=== PATIENT | male | born 2000 | race Caucasian/White ===

== ENCOUNTER 2025-03-22 09:34 | Day surgery (SDC) | payer OTHER, SELFPAY ==
[2025-03-22] VITALS (8 sets, daily range): BP systolic 99–137; BP diastolic 60–88; PULSE 67–84; RESP 16–18; TEMP 36.2–37; O2SAT 92–100; BMI 23.2; BMI 23.1
--- NOTE | 2025-03-22 10:10 | CRLHL7_ITS ---
For Patients: As a result of the Cures Act, medical imaging exams and procedure reports are released immediately into your electronic medical record. You may view this report before your referring provider. If you have questions, please contact your health care provider. INDICATION: Crush injury to hand with laceration on the medial fingers COMPARISON: None. TECHNIQUE: Three views right hand. FINDINGS: No acute or healing fracture. Normal joint alignment. Joint spaces are normal. No focal bone lesions. Normal bone mineralization. Soft tissue swelling and soft tissue wound/laceration in the 3rd 4th and 5th fingers. There are 3 punctate hyperdensities along the ulnar margin of the 5th finger proximal phalanx that could be embedded foreign bodies versus external to the patient. There is some bandage artifact. IMPRESSION: 1. Right 3rd through 5th finger soft tissue injury/laceration. Possible tiny imbedded foreign bodies the 5th finger as detailed above. 2. No right hand fracture or dislocation. Dictated by Nini Godinez MD @ 03/22/2025 10:51:35 AM (Electronically Signed)
--- NOTE | 2025-03-22 10:40 | ED.WOUNDLAC ---
HPI - Wound/Laceration General Time Seen by Provider: 10:50 Date Seen: 03/22/25 Chief Complaint: Laceration/Wound Stated Complaint: R hand lac Time Seen by Provider: 03/22/25 10:25 Source: patient and RN notes reviewed Mode of arrival: ambulatory Limitations: no limitations History of Present Illness HPI narrative: This 24-year-old male was referred from urgent care with a crushing hand injury to his right hand from a hydraulic saw today. They noted several lacerations to his fingers, metal imbedded in his wounds. They referred him to us. He had a Tdap on 11/13/2024. What happened with this injury is the patient was moving metal and cutting metal, his hand got caught on the stop bar and the fingers actually bent backward. The lacerations happened within the injury, they did not come in contact with the saw. He was cutting a metal, specifically aluminum. Denies any numbness tingling. This is patient's dominant hand, he is right handed. On further questioning, patient initially denied any medicines but he is on a steroid, he states he usually takes it on the weekend. He has had surgery on a broken leg when he was a kid, did have a muscle biopsy before. He is reported to have myositis, follows at [facility] in [place] for this. No acute illness at this time. He is not aware of any family anesthesia complications, he has had no problems with anesthesia before. In the [facility] record, can see he carries a diagnosis of dermatomyositis and follows with rheumatology. He appears to be on folic acid and methotrexate, not a steroid. Cefprozil is listed as an allergy in his outside chart, patient was unsure if he had an allergy or not. Patient takes 2 mg of folic acid daily and 25 mg of methotrexate weekly. Related Data Home Medications ?Medication ?Instructions ?Recorded ?Confirmed No Known Home Medications 03/22/25 03/22/25 Allergies Allergy/AdvReac Type Severity Reaction Status Date / Time cefprozil Allergy Unknown Verified 03/22/25 13:02 Review of Systems Narrative: As per HPI. PFS PFS Social History Smoking Status: Never smoker Do you use any of these nicotine containing products: None Second hand tobacco smoke exposure: No How often do you have a drink containing alcohol: monthly or less How many standard drinks containing alcohol do you have on a typical day: 1 or 2 How often do you have six or more drinks on one occasion: Never AUDIT-C Alcohol total score: 1 Non-prescribed substance use: denies use Exam Const: Vital Signs, click to edit/add: Vital Signs - 24 hr 03/22/25 10:03 03/22/25 11:55 03/22/25 12:00 Temperature 98.6 F Pulse Rate 82 71 Pulse Rate [Pulse Oximeter] 79 Respiratory Rate 18 18 18 Blood Pressure 137/88 119/65 Blood Pressure [Le ft Upper Arm] 101/64 Pulse Oximetry 100 100 100 Oxygen Delivery Me thod Room Air Nasal Cannula Nasal Cannula Oxygen Flow Rate 3 3 This 24-year-old male his alert, interactive, no apparent distress, seen in exam room 4. He has bandaging over his hand, he has normal light touch sensation throughout the fingers. I am able to get him to flex 3rd to 5th fingers, there is some difficulty at the right but there is a large proximal lateral laceration. He has some smaller lacerations both on the dorsal and volar surface of the 4th finger, laceration on the 3rd finger. There are multiple extensive aluminum metallic fragments visualized. No pain with in the hand or wrist,. No active extravasation of blood from his wounds at this time. Difficult to see the extent and depth of the wound of the 2nd and 3rd fingers due to swelling, overlying blood/drying. He has no other focal traumatic changes. Sclera clear, conjugate gaze, speech normal. Lungs are clear, good air entry, no wheezing or crackles, no tachypnea, no accessory muscle use. CV regular rate and rhythm, no murmur, normal S1-S2, no S3-S4. Abdomen is soft, nontender, nondistended, no organomegaly noted. Patient did ambulate into the ED of his own accord. Documenting provider has reviewed patient's vital signs: yes Course Course ED Course: Patient had imaging ordered on arrival which I asked nursing to do, do not see any fractures. He has multiple lacerations over the fingers in his hand minus the thumb. The index laceration does look extensive and deep but cannot see further. Nursing staff had noted they could see bone on the 3rd finger, I am not necessarily noting this at this time. He has sensation throughout all fingers. I see metallic fragments all over the hand, do have to think that these certainly could be within the wounds. Will talk to Orthopedics on this patient as I think this would be better suited surgically. Reevaluation(s) Time of Reevaluation #1: 11:40 Reevaluation #1: Decision has been made to take the patient to the OR for washout. I have updated his past medical history. He should be clear for a trial of anesthesia for this semi emergent exploration, washout and closure. Orthopedics will be doing this, Dr. Gruber is the orthopedic surgeon and is consenting the patient. Consultations Consultation #1: This patient has been evaluated by Orthopedics. I feel that this patient would be best suited going to the OR for washout, I am not sure how we will achieve adequate anesthesia with multiple lacerations over multiple fingers with the potential for aluminum within the tissues. He has aluminum fragments all over his external hand, can see some abutting the wounds. His 2nd finger seems to have intact function but is a deep wound and there is overlying blood and drying now at this time. Patient did have a juice box at urgent care. I do think going to the OR for a washout and closure with exploration is still what is appropriate for this patient. They could do regional anesthesia in the OR, I cannot provide this here. Outside of the juice box, last ate last night. Patient did get diaphoretic and pale with examination of his hand, got him an ice pack for his neck and reclined him, this helped with these symptoms. Time: 11:21 Vital Signs Vital signs: Initial Vital Signs Temperature 98.6 F 03/22/25 10:03 Temperature Source Temporal Artery Scan 03/22/25 10:03 Pulse Rate 79 03/22/25 10:03 Respiratory Rate 18 03/22/25 10:03 Blood Pressure 101/64 03/22/25 10:03 Blood Pressure Mean 76 03/22/25 10:03 Pulse Oximetry 100 03/22/25 10:03 Oxygen Delivery Method Room Air 03/22/25 10:03 Vital Signs Temperature 98.6 F 03/22/25 10:03 Pulse Rate 79 03/22/25 10:03 Respiratory Rate 18 03/22/25 10:03 Blood Pressure 101/64 03/22/25 10:03 Pulse Oximetry 100 03/22/25 10:03 Oxygen Delivery Method Room Air 03/22/25 10:03 Temperature 98.6 F 03/22/25 10:03 Pulse Rate 71 03/22/25 12:00 Respiratory Rate 18 03/22/25 12:00 Blood Pressure 119/65 03/22/25 12:00 Pulse Oximetry 100 03/22/25 12:00 Oxygen Delivery Method Nasal Cannula 03/22/25 12:00 Oxygen Flow Rate 3 03/22/25 12:00 Medications Administered Medications: Generic Name Dose Route Start Last Admin Trade Name Freq PRN Reason Stop Dose Admin Lactated Ringer's 1,000 mls @ 100 mls/hr 03/22/25 11:30 03/22/25 11:55 Lactated Ringers 1000 Ml IV 100 mls/hr .Q10H MEERA Administration Sodium Chloride 10 ml 03/22/25 11:26 03/22/25 11:55 Sodium Chloride 0.9 % (Flush) 10 Ml Syringe IVF 10 ml .FLUSH PRN Administration Discontinued Medications Generic Name Dose Route Start Last Admin Trade Name Freq PRN Reason Stop Dose Admin Fentanyl 50 - 100 mcg 03/22/25 11:26 03/22/25 11:55 Fentanyl 100 Mcg/2 Ml Inj IVP 03/22/25 11:27 100 mcg ONCE ONE Administration Clindamycin Phosphate 900 mg in 50 mls @ 100 mls/hr 03/22/25 11:55 03/22/25 12:25 Clindamycin 900 Mg/50 Ml-D5w IVPB 03/22/25 12:24 100 mls/hr ONCE ONE Administration Midazolam HCl 1 - 2 mg 03/22/25 11:26 03/22/25 11:55 Midazolam Hcl 1 Mg/Ml Inj IVP 03/22/25 11:27 2 mg ONCE ONE Administration MDM - Wound/Laceration Imaging Data XR right hand: Attestation: I have reviewed the pertinent imaging results. Radiologist's impression: Patient: KAMAR COLLINS Facility:?[facility] Patient ID:?[id number] Site Patient ID:?[id number]. Site :?[id number] Study:?XRay-Extremity Right HAND 3 VIEWS-03/22/2025 10:43:15 AM Ordering Physician:Angel Glover Final Report: INDICATION: Crush injury to hand with laceration on the medial fingers COMPARISON: None. TECHNIQUE: Three views right hand. FINDINGS: No acute or healing fracture. Normal joint alignment. Joint spaces are normal. No focal bone lesions. Normal bone mineralization. Soft tissue swelling and soft tissue wound/laceration in the 3rd 4th and 5th fingers. There are 3 punctate hyperdensities along the ulnar margin of the 5th finger proximal phalanx that could be embedded foreign bodies versus external to the patient. There is some bandage artifact. IMPRESSION: 1. Right 3rd through 5th finger soft tissue injury/laceration. Possible tiny imbedded foreign bodies the 5th finger as detailed above. 2. No right hand fracture or dislocation. Dictated by Nini Godinez MD @ 03/22/2025 10:51:35 AM (Electronic Signature) Discharge Plan Discharge Clinical Impression: Foreign body (FB) in soft tissue Crush injury of hand Qualifiers: Encounter type: initial encounter Laterality: right Qualified Code(s): S67.21XA - Crushing injury of right hand, initial encounter Laceration of multiple sites of right hand and fingers Qualifiers: Encounter type: initial encounter Qualified Code(s): S61.411A - Laceration without foreign body of right hand, initial encounter Patient Disposition: XFER to OR Condition: Stable
--- NOTE | 2025-03-22 11:49 | P.ORCN_ITS ---
History of Present Illness HPI Time Seen by Provider: 11:00 Date Seen: 03/22/25 Requesting physician: Belen Becerra Chief complaint: R hand lac Narrative: Vitaly is a 24-year-old zkzcv-ebfj-kmaouwyn male presented to urgent care this morning and was subsequently referred to the emergency department after he sustained a crush injury to his right hand from a hydraulic saw. He states that he was cutting a lumen and when his hand got crushed by the stop. He noted several lacerations to his fingers and thinks there might be some metal embedded in some of the wounds. He currently complains of pain in his index, middle, ring, and small fingers and states that his finger motion is limited by pain. He denies any numbness or tingling in his fingers. He had a Tdap on 11/13/2024. He has past medical history significant for derm atitis for which he is on 2 mg of folic acid daily and methotrexate weekly. and methotrexate. He reports an allergy to Cefzil as a child but is unsure of the reaction. [facility] Social History Smoking Status: Never smoker Do you use any of these nicotine containing products: None Second hand tobacco smoke exposure: No How often do you have a drink containing alcohol: monthly or less How many standard drinks containing alcohol do you have on a typical day: 1 or 2 How often do you have six or more drinks on one occasion: Never AUDIT-C Alcohol total score: 1 Non-prescribed substance use: denies use Meds Home Medications and Allergies Home Medications ?Medication ?Instructions ?Recorded ?Confirmed ?Type No Known Home Medications 03/22/2503/09 History Allergies Allergy/AdvReac Type Severity Reaction Status Date / Time cefprozil Allergy Unknown Verified 03/22/25 13:02 Ortho Exam Narrative Exam Narrative: General: Patient is alert and oriented. Musculoskeletal: Right hand was examined. Multiple lacerations of his fingers: -Index finger: Complex, v-shaped, right index finger laceration on the volar radial aspect of the middle phalanx which measured 5 cm in length. -Middle finger: 2 cm laceration ulnar aspect of middle finger just the level of the PIP joint. -Ring finger: 1 cm dorsal ulnar laceration just distal to the PIP joint. FDP, FDS, and finger were intact, however, flexion and extension of the index, middle, and ring fingers was weak and limited by pain. Sensation was intact to light touch to the distal, radial, and ulnar aspects of the thumb, index, middle, ring, and ring fingers. All fingers were warm and well perfused with good capillary refill. Const Vital Signs, click to edit/add: Vital Signs - 24 hr 03/22/25 10:03 Temperature 98.6 F Pulse Rate [Pulse Oximeter] 79 Respiratory Rate 18 Blood Pressure [Left Upper Arm] 101/64 Pulse Oximetry 100 Oxygen Delivery Method Room Air Results Diagnostic results Additional Comments: AP, lateral, oblique x-rays of right hand performed 03/22/2025 were reviewed. These demonstrated soft tissue swelling of the index, middle, and ring fingers. Are some radiopaque densities the ulnar aspect of the small finger. No evidence of any fractures or dislocations. Assessment and Plan Assessment and plan (1) Foreign body (FB) in soft tissue: Status: Acute (2) Laceration of multiple sites of right hand and fingers: Status: Acute (3) Crush injury of hand: Status: Acute Plan Patient was examined in emergency department. He has lacerations to his index, middle, and ring fingers and contaminated wounds. His tendons and neurovascular structures all appear to be intact. Recommendation was made for surgical interv ention consisting of irrigation, debridement, and closure of the of the right hand lacerations. Risks and benefits of the procedure were discussed with the patient, all questions were answered, and informed consent was obtained. Will plan to take patient to OR as soon as OR is ready.
[2025-03-22] MEDS: SODIUM CHLORIDE 0.9 % (FLUSH) 10 ML SYRINGE IVF (11:55)
[2025-03-22] MEDS: MIDAZOLAM HCL 1 MG/ML inj IVP (11:55)
[2025-03-22] MEDS: LACTATED RINGERS 1000 ML 1,000 ML 100 ML IV (11:55)
--- NOTE | 2025-03-22 12:10 | SUR.PREOP ---
TIME?OUT:?1155 PT/randall ujnior RN/viet meeks MDA?VERIFICATION?OF?SURGICAL?SITE,?PROCEDURE,?AND?CONSENT OBTAINED?PRIOR?TO?INVASIVE?PROCEDURE.
--- NOTE | 2025-03-22 12:11 | P.NB_ITS ---
Nerve Block Nerve Block Time Seen by Provider: 12:00 Date Seen: 03/22/25 Type of block requested by surgeon for post-operative analgesia: axillary Side: right Time out performed: Yes Verification of patient name: Yes Verification of date of : Yes Site marking: site marked Name of person performing procedure: Chuck Continuous monitoring Was continuous monitoring of O2 sat, B/P, lunchroom monitor, recorded every 15 minutes?: Yes Procedure Checklist: sterile prep, needles and gloves Ultrasound guided. Images saved: Yes Medications given in 5ml increments after negative aspiration: Marcaine %: 0.25 mL: 10 Needle gauge: 22 and Lidocaine %: 2 mL: 20 Patient tolerated procedure well: Yes Additional comments: Needle noted adjacent to nerve Block Charges Block Charge (with Pro Fee): Brachial Plexus Use of Ultrasound Machine for Block: Yes- US Guidance/pain block
[2025-03-22] MEDS: CLINDAMYCIN 900 MG/50 ML-D5W 900 MG/50 ML PIGGYBACK 100 MG IVPB (12:25)
--- NOTE | 2025-03-22 12:45 | SUR.OPER ---
PATIENT QUESTIONS ANSWERED SATISFACTORILY PREOPERATIVELY. PATIENT BROUGHT TO OR #2 PER CART FOLLOWING THE BLOCK. Patient positioned supine on OR #2 bed Final approval of positioning by surgeon.
[2025-03-22] MEDS: BACITRACIN OINTMENT BULK TUBE 1 APPLIC TOPICAL (13:36)
--- NOTE | 2025-03-22 13:50 | PM.ORPRC ---
Documented by User: Dave Gruber MD 03/22/25 14:55 Procedure Note Date of procedure: 03/22/25 Procedure: PREOPERATIVE DIAGNOSIS: 1. Right index, middle, and ring finger lacerations POSTOPERATIVE DIAGNOSIS: 1. Right index, middle, and ring finger lacerations 2. Right middle finger extensor tendon (ulnar lateral band) laceration 3. Right ring finger extensor tendon (ulnar lateral band) laceration PROCEDURE: 1. Right index, middle, and ring finger irrigation, debridement, and wound closure 2. Right middle finger extensor tendon repair (ulnar lateral band) 3. Right ring finger extensor tendon repair (ulnar lateral band) SURGEON: Maxime Gruber MD. SUPERVISOR OF OFFICIALS: Sander Roblero - Of note, an research lab assistant was critical for this case to aid in patient positioning, tissue retraction, limb manipulation/positioning, wound closure, and splint application ANESTHESIA: Axillary nerve block with monitored anesthesia care TOURNIQUET: 36 minutes at 250 mmHg ESTIMATED BLOOD LOSS: 10 mL COMPLICATIONS: None INDICATIONS: The patient is a 24-year-old eshrx-yfjo-ozoyroaa male who sustained a crush injury to his right hand while at work earlier today. Injury resulted in lacerations to the index, middle, and ring fingers. Today should subside made for surgical intervention consisting of irrigation, debridement and wound closure. Prior to surgery the risks and benefits were discussed with patient, all questions were answered, and informed consent was obtained. FINDINGS: Index finger: Complex, v-shaped, right index finger laceration on the volar radial aspect of the middle phalanx which measured 5 cm in length. No involvement of tendons or neurovascular structures. Middle finger: 2 cm laceration ulnar aspect of middle finger just the level of the PIP joint with laceration of the lateral band. Ring finger: 1 cm dorsal ulnar laceration just distal to the PIP joint with laceration of the lateral band. DESCRIPTION OF PROCEDURE: Following a thorough discussion of risks, benefits, and alternatives to the procedure, informed consent was obtained. An axillary nerve block was then provided by anesthesia staff. Patient was then brought to the operating room placed in supine position the OR table. Patient was provided with 9 mg IV clindamycin preoperatively for prophylaxis and monitored anesthesia care was provided. A tourniquet was then placed on the patient's right forearm, and the right upper extremity was prepped and draped in usual sterile fashion. A surgical time-out was performed with findings as noted above. Right upper extremity was elevated exsanguinated with Esmarch, and tourniquet was inflated 250 mmHg. Lacerations on the index, middle, and ring fingers were irrigated with copious amounts of normal saline. Small pieces of foreign material that was encountered was removed. After the wounds had been thoroughly irrigated they were thoroughly explored with findings as noted above. The middle finger and ring finger ulnar lateral bands were noted to be lacerated. Each of these lateral bands were subsequently repaired with 4-0 FiberWire using a modified Rodriguez stitch. After repair, lateral bands were well approximated and stable. Tourniquet was then released. Hemostasis was achieved with bipolar electrocautery. Lacerations were then closed with 4-0 nylon simple interrupted sutures. Adaptic and bacitracin were applied to the wounds followed by application of sterile dressing and hand based volar splint with the fingers in the intrinsic plus position. Patient was then woken from anesthesia transferred to the recovery room in stable condition. PLAN: 1. Ice and elevation to help control swelling 2. Antibiotics: Clindamycin 300 mg 3 times daily for 3 days 3. Pain management: Tylenol or ibuprofen as needed for pain control. [place] as needed for more severe pain. 4. Will initiate occupational therapy 3-7 days postoperatively per the Hand Extensor Tendon Repair Protocol (zones II,III,IV) 5. Follow-up in Orthopedic Clinic 10-14 days postoperatively for wound check and suture removal.
--- NOTE | 2025-03-22 14:08 | P.ANES_ITS ---
Anesthesia Charges Start Date/Time Anesthesia Start Date: 03/22/25 Anesthesia Start Time: 12:14 Stop Date/Time Anesthesia Stop Date: 03/22/25 Anesthesia Stop Time: 14:01 Summary Emergency: ROBBIE Coding CPT Codes CPT Codes: ANESTH LOWER ARM SURGERY - 33603 ([id number]) P2 - PATIENT W/MILD SYST DISEASE, QK - VOCATIONAL TRAINING INSTRUCTOR 2-4 CNCRNT ANES PROC, QX - CITIZEN PARTICIPATION SPECIALIST SVC W/ MD MED DIRECTION Additional Codes: Summary - Emergency: ROBBIE ([id number])
--- NOTE | 2025-03-22 14:08 | W.ANESCHARGE ---
Anesthesia Charges Start Date/Time Anesthesia Start Date: 03/22/25 Anesthesia Start Time: 12:14 Stop Date/Time Anesthesia Stop Date: 03/22/25 Anesthesia Stop Time: 14:01 Summary Emergency: ROBBIE Coding CPT Codes CPT Codes: ANESTH LOWER ARM SURGERY - 90685 ([id number]) P2 - PATIENT W/MILD SYST DISEASE, QK - DELIVERY TECH 2-4 CNCRNT ANES PROC, QX - JAVA J2EE SOFTWARE ENGINEER SVC W/ MD MED DIRECTION Additional Codes: Summary - Emergency: ROBBIE ([id number])
--- NOTE | 2025-03-22 14:12 | P.ANES_ITS ---
Anesthesia Charges Start Date/Time Anesthesia Start Date: 03/22/25 Anesthesia Start Time: 12:14 Stop Date/Time Anesthesia Stop Date: 03/22/25 Anesthesia Stop Time: 14:01 Coding CPT Codes CPT Codes: ANESTH SKIN EXT/PER/ATRUNK - 60798 ([id number]) P2 - PATIENT W/MILD SYST DISEASE, QK - GIMP BUTTONHOLE MACHINE OPERATOR 2-4 CNCRNT ANES PROC, QX - BRISKET PULLER SVC W/ MD MED DIRECTION
--- NOTE | 2025-03-22 14:12 | W.ANESCHARGE ---
Anesthesia Charges Start Date/Time Anesthesia Start Date: 03/22/25 Anesthesia Start Time: 12:14 Stop Date/Time Anesthesia Stop Date: 03/22/25 Anesthesia Stop Time: 14:01 Coding CPT Codes CPT Codes: ANESTH SKIN EXT/PER/ATRUNK - 69862 ([id number]) P2 - PATIENT W/MILD SYST DISEASE, QK - RENEWALS MANAGER 2-4 CNCRNT ANES PROC, QX - DATAPOWER DEVELOPER SVC W/ MD MED DIRECTION
--- NOTE | 2025-03-22 14:52 | SUR.PHASEII ---
Patient ambulated to bathroom at 1410. Patient voided and got dressed. Patient tolerated water and yogurt.
--- NOTE | 2025-03-22 15:02 | SUR.PHASEII ---
Patient and mother verbalized understanding of discharge instructions and readiness to be discharged.
== END 2025-03-22 15:05 | disposition home or self-care (01) ==
LOC: ED 11:32 → SS 11:38
PROVIDERS: Emergency Provider Family Medicine; Visit Provider Orthopaedic Surgery
PROC: (CPT 26418; principal; 2025-03-22 11:45)
DX: S66.322A Laceration of extensor muscle, fascia and tendon of right middle finger at wrist and hand level, initial encounter (principal); S66.324A Laceration of extensor muscle, fascia and tendon of right ring finger at wrist and hand level, initial encounter; S67.21XA Crushing injury of right hand, initial encounter; S61.220A Laceration with foreign body of right index finger without damage to nail, initial encounter; S61.222A Laceration with foreign body of right middle finger without damage to nail, initial encounter; S61.224A Laceration with foreign body of right ring finger without damage to nail, initial encounter; W31.1XXA Contact with metalworking machines, initial encounter; Y93.H3 Activity, building and construction; Y92.63 Factory as the place of occurrence of the external cause; Y99.0 Civilian activity done for income or pay; G89.18 Other acute postprocedural pain; M33.13 Other dermatomyositis without myopathy; Z79.631 Long term (current) use of antimetabolite agent
CPT/HCPCS: 26418 ×2; 00400; 01810; 64415; 73130; 76942; 99140; 99284; 99285; A9270; J0665; J0736; J2250; J2371; J2704; J3010; J3490; J7120